=== PATIENT | female | born 1990 | race Caucasian/White ===

== ENCOUNTER 2017-11-10 10:46 | Day surgery (SDC) | payer BC, OTHER ==
[~2017-11-10] VITALS: Ht 165.1 cm; Wt 70.9 kg
[2017-11-10] MEDS ORDERED: PREN1TAB79 PO (11:16)
[2017-11-10 11:23] LABS: BASOPHILS # (AUTO) 0.08 x10^3/uL (0-0.1); BASOPHILS % (AUTO) 1 % (0-1); EOSINOPHILS # (AUTO) 0.13 x10^3/uL (0-0.4); EOSINOPHILS % (AUTO) 2 % (1-7); LYMPHOCYTES # (AUTO) 3.28 x10^3/uL (1-3.4); LYMPHOCYTES % (AUTO) 38 % (22-44); MD NO; MEAN CORPUSCULAR HEMOGLOBIN 30.8 pg (27.0-34.8); MEAN CORPUSCULAR HGB CONC 33.8 g/dL (32.4-35.8); MEAN CORPUSCULAR VOLUME 91.1 fL (80-100); MEAN PLATELET VOLUME 8.2 fL (7.4-10.4); MONOCYTES # (AUTO) 0.79 x10^3/uL (0.2-0.8); MONOCYTES % (AUTO) 9 % (2-9); NEUTROPHILS # (AUTO) 4.47 x10^3/uL (1.8-6.8); NEUTROPHILS % (AUTO) 51 % (42-75); PLATELET COUNT 399 x10^3/uL (130-400); RED BLOOD COUNT 4.92 x10^6/uL (3.82-5.3); RED CELL DISTRIBUTION WIDTH 13.4 % (9.6-15.2)
[2017-11-10 11:32] LABS: CULTURE INDICATED? YES; MICROSCOPIC INDICATED
[2017-11-10] MEDS ORDERED: EPINEPHRINE 1 MG/ML, 1ML ONE (12:49)
[2017-11-10] MEDS ORDERED: BUPIVACAINE/PF 0.25% ONE (12:49)
[2017-11-10] MEDS ORDERED: FENTANYL PF 250 MCG/5ML ONE (13:29)
[2017-11-10] MEDS ORDERED: MIDAZOLAM 1 MG/ML, 2ML ONE ×3 (13:29→15:02)
[2017-11-10] MEDS ORDERED: CEFAZOLIN 1,000 MG ONE (13:37)
[2017-11-10] MEDS ORDERED: ROCURONIUM 10 MG/ML,10ML ONE (13:37)
[2017-11-10] MEDS ORDERED: DEXAMETHASONE 4 MG/ML, 1ML ONE (13:37)
[2017-11-10] MEDS ORDERED: PROPOFOL 10 MG/ML, 20ML ONE (13:37)
[2017-11-10] MEDS ORDERED: PROMETHAZINE 12.5 MG SUPP PR PRN (14:00)
[2017-11-10] MEDS ORDERED: ACETAMINOPHEN 325 MG TABLET PO PRN (14:00)
[2017-11-10] MEDS ORDERED: KETOROLAC 30 MG/1 ML IV PRN ×2 (14:00→17:00)
[2017-11-10] MEDS ORDERED: MORPHINE SULFATE 4 MG/ML, 1ML IVPush PRN (14:00)
[2017-11-10] MEDS ORDERED: MEPERIDINE/PF 25MG/0.5ML IVPush PRN (14:00)
[2017-11-10] MEDS ORDERED: BUPIVACAINE/PF-EPI 0.25% 1:200K INFIL ONE (14:22)
[2017-11-10] MEDS: FENTANYL PF 100 MCG/2ML IV PRN ×3 (14:35→15:08)
[2017-11-10] MEDS ORDERED: FENTANYL PF 100 MCG/2ML ONE (14:39)
[2017-11-10] MEDS: MIDAZOLAM 1 MG/ML, 2ML IV PRN ×3 (14:40→15:05)
[2017-11-10] MEDS ORDERED: MEPERIDINE/PF 25MG/0.5ML ONE ×2 (14:45→15:02)
[2017-11-10] MEDS ORDERED: OXYcodone 5 MG/5 ML ORAL.SOL UDC ONE (15:29)
[2017-11-10] MEDS ORDERED: OXYcodone 5 MG/5 ML ORAL.SOL UDC PO PRN (15:30)
[2017-11-10 16:20] VITALS: BP 128/78
[2017-11-10] MEDS ORDERED: LACTATED RINGERS 1,000 ML IV SCH (17:00)
[2017-11-10] MEDS ORDERED: HYDROcodone/APAP 7.5-325MG/15ML UDC PO PRN (17:00)
[2017-11-10] MEDS ORDERED: morphine SULFATE 10 MG/ML, 1ML IV PRN (17:00)
[2017-11-10] MEDS ORDERED: PROMETHAZINE 25MG TABLET ONE (17:17)
[2017-11-10] MEDS ORDERED: PROMETHAZINE 25MG TABLET PO PRN (17:30)
[2017-11-10] MEDS ORDERED: METOCLOPRAMIDE 10MG TABLET PO PRN (17:30)
[2017-11-10] MEDS ORDERED: OXYC-302 PO (17:53)
[2017-11-10] MEDS ORDERED: IBUP-1222 PO (17:55)
[2017-11-10 20:45] VITALS: BP 104/64
== END 2017-11-10 21:55 | disposition home or self-care (01) ==
LOC: ED 12:12 → OR 12:13 → ED 16:17 → 4NOR 16:17 → ED 21:55 → OR 21:55 → 4NOR 21:55
PROVIDERS: ATTEND Obstetrics & Gynecology
DX: O00.90 Unspecified ectopic pregnancy without intrauterine pregnancy (principal); Z3A.01 Less than 8 weeks gestation of pregnancy
CPT/HCPCS: 36415; 59150; 76801; 81001; 84702; 85025; 86901; 87086; 88305; J0171; J0690; J1100; J1885; J2175; J2250; J2704; J3010; J3490; J7120; 96361; 96374; 96375; Q0169

== ENCOUNTER 2018-05-29 10:53 | Emergency (ER) | payer OTHER ==
[~2018-05-29 10:53] MED LIST: IBUP-1222 PO; OXYC-302 PO; PREN1TAB79 PO
== END 2018-05-29 11:21 | disposition left against medical advice (07) ==
LOC: ED 11:15
DX: H53.8 Other visual disturbances (principal); R20.2 Paresthesia of skin; Z53.21 Procedure and treatment not carried out due to patient leaving prior to being seen by health care provider